=== PATIENT | female | born 1955 | race African-American/Black ===

== ENCOUNTER → 2016-04-14 | Outpatient (CLI) | payer OTHER ==
[~2016-04-14] MED LIST: PROT40TA PO
--- NOTE | 2016-04-14 16:27 | RADRPT ---
EXAM DATE/TIME: 04/14/2016 00:00 [facility] COMPARISON: No previous studies available for comparison. INDICATIONS : Fine needle aspiration, Left supraclavicular region. FINDINGS: Images were reviewed. Lymph node in the supraclavicular region identified on previous sonogram. CONCLUSION: PET/CT scan recommended to evaluate supraclavicular adenopathy and for biopsy planning. Malick Bernard MD on April 14, 2016 at 16:21 Board Certified Radiologist. This report was verified electronically.
== END ==
LOC: HRAD 15:49
DX: R59.1 Generalized enlarged lymph nodes (principal)

== ENCOUNTER → 2016-05-06 | Outpatient (CLI) | payer OTHER ==
--- NOTE | 2016-05-06 15:15 | RADRPT ---
EXAM DATE/TIME: 05/06/2016 00:00 [facility] COMPARISON: No previous studies available for comparison. OUTSIDE STUDY REVIEWED: PET/CT scan dated 04/29/16 INDICATIONS : Left supraclavicular adenopathy. FINDINGS: The PET/CT scan dated 04/19/2016 was reviewed. This scan demonstrates no abnormal uptake within the left supraclavicular region to suggest abnormal supraclavicular lymphadenopathy. Therefore, image-gu ided biopsy should not be necessary. CONCLUSION: No definite abnormal uptake of activity within the left supraclavicular region to suggest abnormal ly mphadenopathy. Therefore, no image-guided biopsy should be necessary at this time. Hubert Givens MD on May 06, 2016 at 15:04 Board Certified Radiologist. This report was verified electronically.
== END ==
LOC: HRAD 14:26
DX: R59.9 Enlarged lymph nodes, unspecified (principal)
CPT/HCPCS: 76140